=== PATIENT | female | born 1950 | race Caucasian/White ===

== ENCOUNTER → 2020-03-06 | Outpatient (CLI) | payer MEDICARE, BC ==
--- NOTE | 2020-03-06 16:47 | Diagnostic Imaging Report ---
EXAM: CT Chest WITHOUT intravenous contrast 03/06/2020 2:00 PM INDICATION: Persistent cough COMPARISON: Chest CT 12/15/2016 TECHNIQUE: Chest was scanned utilizing a multidetector helical scanner from the lung apex through the level of the adrenal glands without administration of IV contrast. Coronal and sagittal reformations were obtained. Routine protocol was performed. IV CONTRAST: None RADIATION DOSE: Total DLP: 259 mGy*cm. Dose modulation, iterative reconstruction, and/or weight based adjustment of the mA/kV was utilized to reduce the radiation dose to as low as reasonably achievable. COMPLICATIONS: None FINDINGS: LINES/ TUBES: None. LUNGS AND AIRWAYS: The central airways are patent. Mild bilateral upper lobe predominant centrilobular emphysema. No focal consolidation or pulmonary edema. No suspicious pulmonary nodules. Airways are normal. PLEURA: The pleural spaces are clear. HEART AND MEDIASTINUM: The thyroid gland is normal. No mediastinal, hilar or axillary lymphadenopathy. The heart is normal in size.. There is no pericardial effusion. Mild scattered athetotic calcifications of the aorta and coronary arteries. UPPER ABDOMEN: No acute findings in the upper abdomen. BONES: No acute osseous injury. Mild degenerative changes of the visualized spine. SOFT TISSUES: Unremarkable. IMPRESSION: No focal pneumonia or pulmonary edema. Mild bilateral upper lobe predominant centrilobular emphysema. Signed by: Cornelius Cifuentes MD on 03/06/2020 4:43 PM
== END ==
LOC: CT 13:35
PROVIDERS: ATTEND Internal Medicine
DX: R05 Cough (principal)
CPT/HCPCS: 71250

== ENCOUNTER → 2024-12-09 | Day surgery (SDC) | payer MEDICARE, BC ==
[2024-12-02 12:17] LABS: BASOPHILS % 0.8 % (0.0-1.0); EOSINOPHILS # (AUTO) 0.1 (0.0-0.4); EOSINOPHILS % 3.1 % (0.0-6.0); HEMATOCRIT 37.4 % (34.2-44.1); HEMOGLOBIN 12.5 g/dL (12.0-16.0); LYMPHOCYTES # (AUTO) 0.8 (1.0-3.2); LYMPHOCYTES % 20.3 % (18.0-39.1); MEAN CORPUSCULAR HEMOGLOBIN 31.6 pg (28-32); MEAN CORPUSCULAR HGB CONC 33.4 g/dL (31-35); MEAN CORPUSCULAR VOLUME 94.7 fL (81-99); MONOCYTES # (AUTO) 0.4 (0.2-0.8); MONOCYTES % 10.1 % (4.4-11.3); NEUTROPHILS # (AUTO) 2.5 (2.1-6.9); NEUTROPHILS % 65.4 % (38.7-80.0); PLATELET COUNT 158 x10e3/uL (140-360); RED BLOOD COUNT 3.95 x10e6/uL (3.6-5.1); RED CELL DISTRIBUTION WIDTH 12.1 % (11.7-14.4); WHITE BLOOD COUNT 3.85 x10e3/uL (4.8-10.8)
[2024-12-02 12:52] LABS: ANION GAP 15.2 mmol/L (8-16); CALCIUM 9.1 mg/dL (8.4-10.2); CREATININE, SERUM 0.82 mg/dL (0.57-1.11); POTASSIUM 4.2 mmol/L (3.5-5.1)
[~2024-12-09] MED LIST: ACETAMINOPHEN 1000 MG/100 ML 100 ML IV ONE; BUPIVACAINE/EPI 0.5% 30ML SDV-MPF INJ ONE; CRESTOR40 MG PO; DEXAMETHASONE SOD PHOS INJ 4 MG/ML SDV ONE; EPHEDRINE SULFATE INJ 50 MG/ML VIAL ONE; FENTANYL CITRATE/PF 100MCG/2 ML INJ ONE; FERROUS SULFAT324 MG PO; FOLIC ACID0.4 MG PO; K2 PLUS D3 TAB1 EACH PO; LATANOPROST2.5 ML OU; LIDOCAINE HCL 2% LOCAL INJ 5 ML SDV VIAL INJ ONE; LOSARTAN POTASS25 MG PO; ONDANSETRON HCL INJ 2MG/ML 2ML 2 MG/ML VIAL ONE; PROBIOTIC1 EAC1 PO; PROPOFOL IV EMULSION 10 MG/ML 20 ML VIAL ONE; SERTRALINE HCL25 MG PO; VITAMIN B-121000 MCG PO; ZINC PO
[2024-12-09] MEDS: LACTATED RINGER'S 1,000 ML ONE (06:28)
[2024-12-09] MEDS: CEFAZOLIN SODIUM 0 GM ONE (06:28)
[2024-12-09] MEDS: SODIUM CHLORIDE 0.9% 250ML 250 ML ONE (07:21)
[2024-12-09] MEDS: Vancomycin IV 1 GM VIAL ONE (07:21)
[2024-12-09 10:10] VITALS: BP 113/55; PULSE 78; RESP 16; O2SAT 95
== END | disposition home or self-care (01) ==
LOC: OR 05:23
PROVIDERS: ATTEND Podiatrist Foot Surgery
DX: M20.41 Other hammer toe(s) (acquired), right foot (principal); M77.51 Other enthesopathy of right foot and ankle; I10 Essential (primary) hypertension; E78.5 Hyperlipidemia, unspecified; R05.9 Cough, unspecified; F32.A Depression, unspecified; F41.9 Anxiety disorder, unspecified; F17.200 Nicotine dependence, unspecified, uncomplicated; Z88.0 Allergy status to penicillin; Z01.810 Encounter for preprocedural cardiovascular examination; Z01.812 Encounter for preprocedural laboratory examination; Z01.818 Encounter for other preprocedural examination; Z79.899 Other long term (current) drug therapy; Z85.828 Personal history of other malignant neoplasm of skin
CPT/HCPCS: 28285 ×2; 36415; 71046; 80048; 85025; 93005; C1713 ×2; J0131; J1100; J2003; J2405; J2704; J3010; J3370; J7050; J7121; V2790